=== PATIENT | female | born 1935 | race Caucasian/White ===

== ENCOUNTER 2017-06-05 08:00 | Inpatient (IN) | payer OTHER ==
[2017-06-05] VITALS (7 sets, daily range): BP systolic 144–163; BP diastolic 74–86; PULSE 93–105; RESP 18–19; TEMP 98.1; Ht 165.1 cm; Wt 50.0 kg
[~2017-06-05] VITALS: Ht 165.1 cm; Wt 50.0 kg
[2017-06-05] MEDS ORDERED: SOD CHLORIDE 0.9% 1,000 ML IV STA (08:06)
[2017-06-05] MEDS ORDERED: IPRATROPIUM (NEB) 0.5 MG/2.5 ML AMP INH STA ×2 (08:06→10:54)
[2017-06-05] MEDS ORDERED: ALBUTEROL 0.5% (NEB) 2.5 MG/0.5 ML AMP INH STA ×2 (08:06→10:54)
[2017-06-05] MEDS ORDERED: METHYLPREDNISOLONE 125 MG INJ IV STA (08:06)
--- NOTE | 2017-06-05 08:17 | ERA ---
ER Documentation Chief Complaint Date/Time DATE: 06/05/17 TIME: 08:14 Chief Complaint PT BIB AMBULANCE C/O SOSB, WHEEZING, NO CP HPI This is a 81-year-old female with a known history of dementia that was brought into the emergency department from her assisted living facility with severe difficulty breathing. EMS indicated the patient had wheezing bilaterally and immediately was given a nebulizer treatment with improvement of her dyspnea. She was hypoxic at 90% on room air. EMS indicated that after the nebulizer treatment of albuterol her pulse ox improved to 95%. The patient's past medical history is unknown. She is a poor historian given her history of dementia. The difficulty breathing according to nursing staff at the assisted living facility occurred several hours prior to arrival and progressively worsened. She has also had a productive cough. There has been no complaints of chest pain or pressure that radiates to the neck or back or jaw. She has remained afebrile. There is no documentation of hemoptysis hematemesis or melanotic stools. Past medical history of the patient is unknown ROS All systems reviewed and are negative except as per history of present illness. Medications Home Meds Active Scripts Albuterol Sulfate* (Proair HFA*) 8.5 Gm Hfa.aer.ad, 2 PUFF INH Q6H Y for WHEEZING AND SOB, #1 INHALER Prov:HANNAH FINNEY 06/05/17 Cephalexin* (Keflex*) 500 Mg Capsule, 500 MG PO QID for 10 Days, CAP Prov:HANNAH FINNEY 06/05/17 Reported Medications Dextromethorphan Hbr (Tussin) 15 Mg/5 Ml Liquid, 30 MG PO Q6H Y for COUGH, ML 06/05/17 Albuterol Sulfate* (Proair HFA*) 8.5 Gm Hfa.aer.ad, 2 PUFF INH Q4H Y for WHEEZING AND SOB, #1 INHALER 06/05/17 Lorazepam* (Lorazepam*) 0.5 Mg Tablet, 0.5 MG PO HS Y for ANXIETY, TAB 06/05/17 Clonidine Hcl* (Clonidine Hcl*) 0.1 Mg Tab, 0.1 MG PO BID Y for ELEVATED BLOOD PRESSURE, TAB 06/05/17 Memantine HCl/Donepezil HCl (Namzaric 21 mg-10 mg Capsule) 1 Each Cap.spr.24, 1 EACH PO DAILY 06/05/17 Donepezil* (Donepezil*) 10 Mg Tablet, 10 MG PO DAILY, #30 TAB 06/05/17 Quetiapine Fumarate* (Quetiapine Fumarate*) 25 Mg Tablet, 12.5 MG PO BID, TAB 06/05/17 Calcium Phosphate Dibas/Vit D3 (RISACAL-D TABLET) 1 Each Tablet, 1 EACH PO DAILY , TAB 06/05/17 Losartan Potassium* (Losartan Potassium*) 100 Mg Tablet, 100 MG PO DAILY, TAB 06/05/17 Amlodipine Besylate* (Norvasc*) 5 Mg Tablet, 5 MG PO DAILY, TAB 06/05/17 Allergies Allergies: Coded Allergies: No Known Allergy (Unverified , 06/05/17) PMhx/Soc History of Surgery: No Anesthesia Reaction: No Hx Neurological Disorder: Yes (Dimentia) Hx Respiratory Disorders: Yes (on Pro-air) Hx Cardiac Disorders: No Hx Psychiatric Problems: Yes (Schizo-effective disorder.) Hx Miscellaneous Medical Probl: Yes (HTN, GERD) Hx Alcohol Use: No Hx Substance Use: No Hx Tobacco Use: No Smoking Status: Unknown if ever smoked Physical Exam Vitals Vital Signs Date Time Temp Pulse Resp B/P Pulse Ox O2 Delivery O2 Flow Rate FiO2 06/05/17 09:32 97.9 102 22 162/89 99 Room Air 06/05/17 08:17 100 22 98 21 06/05/17 08:06 97.5 95 19 145/91 97 Physical Exam Constitutional:Well-developed. Well-nourished. Patient in severe respiratory distress HEENT:Normocephalic. Atraumatic.Pupils were equal round reactive to light. Moist mucous membranes.No tonsillar exudates. Neck: No nuchal rigidity. No lymphadenopathy. No posterior cervical spine tenderness or step-offs. Respiratory: Not using accessory muscles of respiration. Wheezing on end auscultation bilaterally. No rhonchi no rales Cardiovascular: Regular rate regular rhythm.No murmurs. No rubs were appreciated.S1, S2 normal. Distal pulses are palpable 2+ bilaterally. GI: Abdomen was soft. Nontender. Non Distended. No pulsatile abdominal masses or bruits. No rebound. No guarding. Bowel sounds were present and normal. Muscle skeletal: Full range of motion of both the upper and lower extremities bilaterally.Normal muscle tone.No assymetrical calf tenderness or swelling. Skin: No petechia, no purpura. No lesions on the palms or the soles of the feet. No maculopapular rash. NEURO: Patient was alert, awake, orientated to person place but not to time. Gait not observed this patient was in severe respiratory distress. Patient would follow verbal command. No facial droop. No flattened nasolabial fold. Result Diagram: 06/05/1730 06/05/1730 Results 24 hrs Laboratory Tests Test 06/05/17 08:30 06/05/17 09:30 White Blood Count 6.010^3/ul Red Blood Count 4.1810^6/ul Hemoglobin 13.3g/dl Hematocrit 41.2% Mean Corpuscular Volume 98.6fl Mean Corpuscular Hemoglobin 31.8pg Mean Corpuscular Hemoglobin Concent 32.3g/dl Red Cell Distribution Width 14.7% Platelet Count 55324^3/UL Mean Platelet Volume 9.6fl Neutrophils % 49.6% Lymphocytes % 36.2% Monocytes % 10.1% Eosinophils % 3.3% Basophils % 0.5% Nucleated Red Blood Cells % 0.0/100WBC Neutrophils # 3.010^3/ul Lymphocytes # 2.210^3/ul Monocytes # 0.610^3/ul Eosinophils # 0.210^3/ul Basophils # 0.010^3/ul Nucleated Red Blood Cells # 0.010^3/ul Sodium Level 146mmol/L Potassium Level 4.3mmol/L Chloride Level 109mmol/L Carbon Dioxide Level 31mmol/L Anion Gap 10 Blood Urea Nitrogen 26mg/dl Creatinine 0.82mg/dl Glucose Level 92mg/dl Calcium Level 9.1mg/dl Total Bilirubin 0.3mg/dl Direct Bilirubin 0.00mg/dl Indirect Bilirubin 0.3mg/dl Aspartate Amino Transf (AST/SGOT) 24IU/L Alanine Aminotransferase (ALT/SGPT) 24IU/L Alkaline Phosphatase 59IU/L Creatine Kinase 28IU/L Creatine Kinase Index 2.9 Creatinine Kinase MB (Mass) 0.82ng/ml Troponin I < 0.012ng/ml B-Type Natriuretic Peptide 159PG/ML Total Protein 7.6g/dl Albumin 4.2g/dl Globulin 3.40g/dl Albumin/Globulin Ratio 1.23 Urine Color YELLOW Urine Clarity CLEAR Urine pH 5.0 Urine Specific [place] 1.017 Urine Ketones NEGATIVEmg/dL Urine Nitrite NEGATIVEmg/dL Urine Bilirubin NEGATIVEmg/dL Urine Urobilinogen NEGATIVEmg/dL Urine Leukocyte Esterase TRACELeu/ul Urine Microscopic RBC 2/HPF Urine Microscopic WBC 11/HPF Urine Bacteria FEW/HPF Urine Hemoglobin NEGATIVEmg/dL Urine Glucose NEGATIVEmg/dL Urine Total Protein NEGATIVEmg/dl Current Medications Medications (Trade) Dose Ordered Sig/Kristen Route PRN Reason Start Time Stop Time Status Last Admin Dose Admin Sodium Chloride (NS) 1,000 ml @ 1,000 mls/hr Q1H STAT IV 06/05/17 08:06 06/05/17 09:05 DC 06/05/17 08:34 Albuterol (Proventil 0.5% (Neb)) 10 mg ONCE STAT INH 06/05/17 08:06 06/05/17 08:09 DC 06/05/17 08:15 Ipratropium [place] (Atrovent 0.02% (Neb)) 1 mg ONCE STAT INH 06/05/17 08:06 06/05/17 08:09 DC 06/05/17 08:15 Methylprednisolone Sodium Succinate 125 mg 125 mg ONCE STAT IV 06/05/17 08:06 06/05/17 08:09 DC 06/05/17 08:34 Ceftriaxone Sodium (Rocephin) 50 ml @ 100 mls/hr ONCE ONCE IVPB 06/05/17 10:00 06/05/17 10:29 DC 06/05/17 09:54 Albuterol (Proventil 0.5% (Neb)) 10 mg ONCE STAT INH 06/05/17 10:54 06/05/17 10:55 Ipratropium [place] (Atrovent 0.02% (Neb)) 1 mg ONCE STAT INH 06/05/17 10:54 06/05/17 10:55 Procedures/MDM The patient presented to the emergency department with dyspnea. My differential diagnosis included but was not limited to upper airway obstruction, CHF, pulmonary embolism, cardiac ischemia, pneumonia, pneumothorax, anemia, drug overdose, pulmonary edema, COPD or asthma. The patient was immediately placed on a alarm security or surveillance monitor continuous pulse oximetry and IV access was established by nursing staff. The patient was started on continuous nebulizer treatment of albuterol Atrovent and given 125 mg of Solu-Medrol. 12 Lead EKG tracing ordered and reviewed by myself showed: Sinus tachycardia 102 bpm and no arrhythmia. PA interval normal. QRS duration normal. PVCs No ST segment elevation No ST segment depression. No changes consistent with acute ischemia. One view chest radiograph was ordered and reviewed by myself and indicated the following: Probable prominent epicardial fat pad in the medial right lung base. Calcified aorta consistent with atherosclerotic disease. The patient had no electrolyte abnormalities. There is no leukocytosis. The patient was nontoxic in appearance. After receiving the nebulizer treatments the patient's symptoms had significantly improved. I did feel her symptoms could be a result of acute bronchitis as the patient had no evidence of pneumonia at this time. She had no risk factors for pulmonary embolism. Therefore I felt the patient be safely discharged back to her assisted living facility with low-dose steroids and nebulizer treatments. The patient's urinalysis indicated a mild urinary tract infection. Urine culture was obtained. She received 1 g of ceftriaxone in the emergency department. She will be discharged back to her assisted living facility with a prescription of Keflex to take for the next 10 days Patient had mild hyponatremia that was likely secondary to clinical dehydration and was treated with a liter bolus of normal saline The patient was to be discharged home however when EMS arrived for ambulance transfer the patient had worsening of her respiratory distress. Now was using accessory muscles of respiration and had decreased breath sounds bilaterally. She was immediately placed on a BiPAP and ABG has been performed. She received nebulizer treatments of albuterol and Atrovent. Therefore at this time I did feel the patient required admission due to the continuation of the decompensation of her respiratory status. Once on the noninvasive mechanical ventilation her symptoms significantly improved. She will be admitted under the care of Dr. to the telemetry service in serious condition with an anticipated stay of greater than 2 midnights Critical Care: Time: 45 minutes Treatments/Evaluations: Close monitoring and treatment of unstable vital signs, cardiorespiratory, and neurologic status, while maintaining tight balance of fluid, respiratory, and cardiac interventions. Time does not include performing any of the above billable procedures. Departure Diagnosis: Primary Impression: Bronchitis Additional Impressions: Acute hypernatremia Urinary tract infection Qualified Code: N30.00 - Acute cystitis without hematuria Respiratory distress Condition: Serious HANNAH FINNEY Jun 05, 2017 08:17
--- NOTE | 2017-06-05 08:33 | RADRPT ---
PROCEDURE: XR Chest. CLINICAL INDICATION: Chest pain, asthma TECHNIQUE: Single frontal view of the chest was obtained. COMPARISON: None FINDINGS: The heart is within normal limits. The thoracic aorta is calcified. There is no focal infiltrate. There is increased density in the right lung base medially, suspicious for a prominent epicardial fat pad. There is no pleural effusion or pneumothorax. RPTAT: AA IMPRESSION: Probable prominent epicardial fat pad in the medial right lung base. Calcified aorta consistent with atherosclerotic disease. .Cory Melendez MD, MD Date Time Electronically viewed and signed by .Cory Melendez MD, on 06/05/2017 08:32 .S/
[2017-06-05 08:49] LABS: BASOPHILS % 0.5 % (0.0-2.0); EOSINOPHILS # 0.2 10^3/ul (0.0-0.5); EOSINOPHILS % 3.3 % (0.0-7.0); HEMATOCRIT 41.2 % (37.0-47.0); HEMOGLOBIN 13.3 g/dl (12.0-16.0); LYMPHOCYTES # 2.2 10^3/ul (0.8-2.9); LYMPHOCYTES % 36.2 % (15.0-51.0); MEAN CORPUSCULAR HEMOGLOBIN 31.8 pg (29.0-33.0); MEAN CORPUSCULAR HGB CONC 32.3 g/dl (32.0-37.0); MEAN CORPUSCULAR VOLUME 98.6 fl (82.0-101.0); MEAN PLATELET VOLUME 9.6 fl (7.4-10.4); MONOCYTE # 0.6 10^3/ul (0.3-0.9); MONOCYTES % 10.1 % (0.0-11.0); NEUTROPHILS % 49.6 % (39.0-77.0); PLATELET COUNT 306 10^3/UL (140-415); RED BLOOD COUNT 4.18 10^6/ul (4.20-5.40); RED CELL DISTRIBUTION WIDTH 14.7 % (11.5-14.5)
[2017-06-05] MEDS ORDERED: AMLO5TAB4 PO (09:07)
[2017-06-05] MEDS ORDERED: LOSA100T7 PO (09:08)
[2017-06-05] MEDS ORDERED: [UNRECOGNIZED DRUG - CODE] PO (09:08)
[2017-06-05] MEDS ORDERED: QUET25TA33 PO (09:08)
[2017-06-05] MEDS ORDERED: DONE10TA7 PO (09:09)
[2017-06-05] MEDS ORDERED: CLON-379 PO (09:10)
[2017-06-05] MEDS ORDERED: MEMA1CAP5 PO (09:10)
[2017-06-05 09:11] LABS: ALANINE AMINOTRANSFERASE 24 IU/L (13-69); ALBUMIN 4.2 g/dl (3.3-4.9); ALBUMIN/GLOBULIN RATIO 1.23; ALKALINE PHOSPHATASE 59 IU/L (42-121); ANION GAP 10 (8-16); ASPARTATE AMINO TRANSFERASE 24 IU/L (15-46); BILIRUBIN,INDIRECT 0.3 mg/dl (0-1.1); BILIRUBIN,TOTAL 0.3 mg/dl (0.2-1.3); BLOOD UREA NITROGEN 26 mg/dl (7-20); CALCIUM 9.1 mg/dl (8.4-10.2); CARBON DIOXIDE 31 mmol/L (21-31); CHLORIDE 109 mmol/L (97-110); CREATINE KINASE 28 IU/L (23-200); CREATININE 0.82 mg/dl (0.44-1.00); GLUCOSE 92 mg/dl (70-220); POTASSIUM 4.3 mmol/L (3.5-5.1); SODIUM 146 mmol/L (135-144); TOTAL PROTEIN 7.6 g/dl (6.1-8.1)
[2017-06-05] MEDS ORDERED: LORA0.5T PO (09:11)
[2017-06-05] MEDS ORDERED: ALBU8.5H3 INH ×2 (09:13→09:52)
[2017-06-05] MEDS ORDERED: DEXT15LI31 PO (09:14)
[2017-06-05 09:23] LABS: B-TYPE NATRIURETIC PEPTIDE 159 PG/ML (0-450); CK-MB 0.82 ng/ml (0.0-2.4)
[2017-06-05 09:25] LABS: TROPONIN-I < 0.012 ng/ml (0.00-0.12)
[2017-06-05 09:46] LABS: ADD UMIC YES; UR ASCORBIC ACID 20 mg/dL (NEGATIVE); UR BACTERIA FEW /HPF (NONE SEEN); UR BILIRUBIN (Dip) NEGATIVE (NEGATIVE); UR BLOOD (Dip) NEGATIVE (NEGATIVE); UR CLARITY CLEAR (CLEAR); UR COLOR YELLOW (YELLOW); UR GLUCOSE (Dip) NEGATIVE (NEGATIVE); UR KETONES (Dip) NEGATIVE (NEGATIVE); UR LEUKOCYTE ESTERASE (Dip) TRACE Leu/ul (NEGATIVE); UR NITRITE (Dip) NEGATIVE (NEGATIVE); UR RBC 2 /HPF (0-5); UR SPECIFIC GRAVITY (Dip) 1.017 (1.003-1.030); UR TOTAL PROTEIN (Dip) NEGATIVE (NEGATIVE); UR UROBILINOGEN (Dip) NEGATIVE (NEGATIVE)
[2017-06-05] MEDS ORDERED: CEPH-443 PO (09:51)
[2017-06-05] MEDS ORDERED: CEFTRIAXONE 1 GM/50 ML (PMX) 50 ML IVPB ONE (10:00)
[2017-06-05 11:22] LABS: Allen Test ACCEPTAB; Arterial Base Excess 0.8 mmol/L (-3.0-3); Arterial COHb 0.3 % (0.0-3.0); Arterial Fraction of Oxyhgb 98.6 % (93.0-99.0); Arterial HCO3 26.5 mmol/L (22.0-26.0); Arterial MetHb 0.3 % (0.0-1.5); Arterial Total Hemglobin 13.2 g/dl (12.0-18.0); Blood Gas IEPAP 15/5; MODE MASK - BIPAP
[2017-06-05] MEDS ORDERED: ONDANSETRON 4 MG INJ IV PRN ×2 (12:00→14:00)
[2017-06-05] MEDS ORDERED: ACETAMINOPHEN 325 MG TAB PO PRN ×2 (12:00→14:00)
[2017-06-05] MEDS ORDERED: SOD CHLORIDE 0.9% 1,000 ML IV SCH (13:51)
[2017-06-05] MEDS ORDERED: ALBUTEROL/IPRATROPIUM (NEB) 3 ML AMP HHN PRN (14:00)
[2017-06-05] MEDS ORDERED: morphine 2 MG INJ IV PRN (14:00)
[2017-06-05] MEDS ORDERED: NITROGLYCERIN (SL) 0.4 MG TAB SL PRN (14:00)
[2017-06-05] MEDS ORDERED: hydrALAzine 20 MG INJ IV PRN (14:00)
[2017-06-05] MEDS ORDERED: LORAZEPAM 0.5 MG TAB PO PRN (14:00)
[2017-06-05] MEDS ORDERED: MAGNESIUM HYDROXIDE 30ML CUP PO PRN (14:00)
[2017-06-05] MEDS ORDERED: NACL 0.9% 3 ML SYG IV SCH (14:00)
[2017-06-05] MEDS ORDERED: DOCUSATE SODIUM 100 MG CAP PO PRN (14:00)
[2017-06-05] MEDS ORDERED: BISACODYL 10 MG SUPP PR PRN (14:00)
[2017-06-05] MEDS ORDERED: SOD CHLORIDE 0.9% 100 ML ONE (15:28)
[2017-06-05] MEDS ORDERED: IODIXANOL LOCM 100 ML BTL ONE (15:28)
[2017-06-05 15:29] LABS: CREATINE KINASE 62 IU/L (23-200)
[2017-06-05 15:42] LABS: CK-MB 1.37 ng/ml (0.0-2.4)
[2017-06-05 16:02] LABS: TROPONIN-I < 0.012 ng/ml (0.00-0.12)
--- NOTE | 2017-06-05 16:13 | RADRPT ---
PROCEDURE: CTA Chest CLINICAL INDICATION: Dyspnea TECHNIQUE: CTA of the chest was performed following the uncomplicated IV administration of 100 cc Visipaque 320. Coronal and sagittal images were reconstructed from the axial data set. 3-D volumet sharri rendered post processing was performed as well. One or more of the following dose reduction lucho hniques were used: automated exposure control, adjustment of the mA and/or kV according to patient s ize, use of iterative reconstruction technique. CTDI = 5.8 mGy. DLP = 223.02 mGy-cm. COMPARISON: No prior studies are available for comparison. FINDINGS: No filling defect is present to suggest pulmonary embolism. There is no evidence for pulmonary melissa rial hypertension. There is moderate to severe pulmonary emphysema. No acute infiltrate, pleural effusion, pulmonary ed harjit or pneumothorax is identified. The central tracheobronchial tree is clear. No pulmonary nodule o r mass is seen. The heart is mildly enlarged, without pericardial effusion. Coronary arterial and aortic atheroscler otic calcifications are present. There is no thoracic aortic aneurysm or dissection. No mediastinal, hilar, axillary or supraclavicular lymphadenopathy is identified. The Right adrenal gland demonstrates a 3.7 cm benign adenoma. Visualized portions of the upper abdomen a re otherwise unremarkable. The osseous structures are remarkable for degenerative spondylosis of th e spine. No osteolytic or osteoblastic lesion is seen. IMPRESSION: 1. No pulmonary embolism is identified. 2. There is moderate to severe pulmonary emphysema. 3. Mild cardiomegaly is noted. Coronary arterial and aortic atherosclerotic calcifications are pres ent. 4. No mass, lymphadenopathy, or focal acute infiltrate is identified. RPTAT: AAOO .Jos Christine MD, MD Date Time Electronically viewed and signed by .Jos Christine MD, MD on 06/05/2017 16:13 .R/
[2017-06-05] MEDS: METHYLPREDNISOLONE 125 MG INJ IV SCH ×2 (16:21→20:59)
[2017-06-05] MEDS: DONEPEZIL 10 MG TAB PO SCH (16:22)
[2017-06-05] MEDS: AMLODIPINE 5 MG TAB PO SCH (16:24)
[2017-06-05] MEDS: LOSARTAN 50 MG TAB PO SCH (16:24)
--- NOTE | 2017-06-05 16:59 | HP ---
Date/Time of Note Date/Time of Note DATE: 06/05/17 TIME: 16:52 Assessment/Plan VTE Prophylaxis VTE Prophylaxis Intervention: LMWH Assessment/Plan Assessment/Plan 81-year-old female with: 1. Acute respiratory distress, COPD exacerbation, CAT scan consistent with moderate to severe emphysema with likely underlying bronchitis Continue nebulizer treatments, steroids, Advair, Spiriva, pulmonary toilet Continue ceftriaxone will add also azithromycin Supplemental oxygen with goal O2 sat above 92% 2. Hypertension: Continue current medications, as needed hydralazine IV added. 3. Dementia: Continue home medications, patient currently stable and calm 4. GERD: Continue current medications 5. Schizophrenia per record, continue current medications Prophylaxis: Lovenox for DVT prophylaxis, Protonix for GI prophylaxis Disposition: Continue current treatment, supplemental oxygen, hopefully discharge planning in the next 24-48 hours Patient is DNR HPI/ROS Admit Date/Time Admit Date/Time Jun 05, 2017 at 11:36 Hx of Present Illness Chief complaint: Shortness of breath History of presenting illness: This is a 81-year-old female with very limited history without have much from assisted living, but reported dementia, hypertension and no previous chronic lung disease per report who was brought to the emergency department with episode of severe shortness of breath and productive cough, apparently in the ER she was fairly stable with no acute findings and she was being discharged back to her next to her assisted living with diagnosis of Bronchitis, while awaiting for ambulance to take her back, patient was noted to have recurring severe respiratory distress requiring BiPAP , she was given a dose of Solu-Medrol along with nebulizer treatments and admitted to telemetry. She had a CT angiogram of the chest, no pulmonary embolus however the patient has moderate to severe emphysema noted. Nebulizer treatments, steroids, Advair , Spiriva has been ordered. She is on supplemental oxygen, ABG was fairly stable on BiPAP. She will be monitored overnight and treated for COPD exacerbation. She may still have underlying bronchitis therefore her Rocephin is being continued. Patient herself has dementia, she is answering simple question but she is not able to reason through her symptoms and diagnosis. Per her son, she is DNR. She denies chest pain, she reports some shortness of breath still, no fevers, no nausea, no vomiting. ROS Constitutional: no complaints Eyes: no complaints ENT: no complaints Respiratory: other, shortness of breath Cardiovascular: no complaints Gastrointestinal: no complaints Genitourinary: no complaints Musculoskeletal: no complaints Neurologic: confusion Lymphatic: no complaints PMH/Family/Social Past Medical History Dementia Hypertension Gastroesophageal reflux disease Reported schizophrenia Emphysema Past Surgical History Unknown, patient unable to give any history Family History Significant Family History: no pertinent family hx Social History Alcohol Use: none Smoking Status: Former smoker Drug Use: none Exam/Review of Systems Vital Signs Vitals Vital Signs Date Time Temp Pulse Resp B/P Pulse Ox O2 Delivery O2 Flow Rate FiO2 06/05/17 16:38 98.3 105 18 144/86 97 06/05/17 12:27 BIPAP 06/05/17 11:25 30 Exam Constitutional: alert, oriented (x2), other (Elderly), well developed Respiratory: diminished breath sounds (Patient bronchospastic but improved), other (Improved air movement), wheezing (Some expiratory wheezes) Cardiovascular: nl pulses, regular rate and rhythm Gastrointestinal: soft Musculoskeletal: nl extremities to inspection Extremities: normal pulses, other (No edema, clubbing or cyanosis) Neurological: TRANSMISSION ENGINEER II-XII intact, confused, lethargic, nl speech Labs Result Diagram: 06/05/17 0830 06/05/17 0830 Medications Medications Current Medications Amlodipine Besylate (Norvasc) 5 mg DAILY PO Last administered on 06/05/17 16: 24; Admin Dose 5 MG; Start 06/05/17 at 14:30 Clonidine (Catapres) 0.1 mg BID PRN PO ELEVATED BLOOD PRESSURE; Start 06/05/17 at 14:00 Donepezil HCl (Aricept) 10 mg DAILY PO Last administered on 06/05/17 16:22; Admin Dose 10 MG; Start 06/05/17 at 14:30 Lorazepam (Ativan) 0.5 mg HS PRN PO ANXIETY; Start 06/05/17 at 14:00 Losartan Potassium (Cozaar) 100 mg DAILY PO Last administered on 06/05/17 16: 24; Admin Dose 100 MG; Start 06/05/17 at 14:30 Quetiapine Fumarate (Seroquel) 12.5 mg BID PO ; Start 06/05/17 at 21:00 Hydralazine HCl 10 mg 10 mg Q8H PRN IV ELEVATED BLOOD PRESSURE; Start 06/05/17 at 14:00 Ceftriaxone Sodium 50 ml @ 100 mls/hr Q24H IVPB ; Start 06/06/17 at 10:00 Sodium Chloride (NS) 1,000 ml @ 75 mls/hr [id number] IV Last administered on 06/05 16:08; Admin Dose 75 MLS/HR; Start 06/05/17 at 13:51; Stop 06/06/17 at 03: 10 Ondansetron HCl (Zofran Inj) 4 mg Q6H PRN IV NAUSEA AND/OR VOMITING; Start at 14:00 Methylprednisolone Sodium Succinate (Solu-Medrol) 60 mg Q8 IV Last administered on 06/05/17 16:21; Admin Dose 60 MG; Start 06/05/17 at 14:30 Nitroglycerin (Nitroglycerin (Sl Tab) 0.4 Mg) 1 tab Q5M PRN SL CHEST PAIN; Start 06/05/17 at 14:00 Acetaminophen (Tylenol Tab) 650 mg Q6H PRN PO PAIN LEVEL 1-3 OR FEVER; Start at 14:00 Acetaminophen/ Hydrocodone Bitart ([place] (5/325)) 1 tab Q6H PRN PO PAIN LEVEL 4 -6; Start 06/05/17 at 14:00 Morphine Sulfate (morphine) 2 mg Q4H PRN IV PAIN LEVEL 7-10; Start 06/05/17 at 14:00 Docusate Sodium (Colace) 100 mg Q12H PRN PO CONSTIPATION; Start 06/05/17 at 14: 00 Magnesium Hydroxide (Milk Of Mag) 30 ml DAILY PRN PO CONSTIPATION; Start at 14:00 Bisacodyl (Dulcolax Supp) 10 mg DAILY PRN DE CONSTIPATION; Start 06/05/17 at 14 :00 Pantoprazole (Protonix Tab) 40 mg DAILY@06 PO ; Start 06/06/17 at 06:00 Enoxaparin Sodium (Lovenox) 40 mg DAILY SC ; Start 06/06/17 at 09:00 Memantine (Namenda) 10 mg DAILY PO ; Start 06/06/17 at 09:00 Influenza Virus Vaccine (Fluzone) 0.5 ml ONCE ONCE IM* ; Start 06/05/17 at 18:00 ; Stop 06/05/17 at 18:01 Salmeterol Xinafoate/ Fluticasone (Advair 250/50 Diskus) 1 inh BID INH ; Start 06/05/17 at 21:00 Tiotropium [place] (Spiriva) 1 inh DAILY INH ; Start 06/05/17 at 17:00 Procedures Procedures PROCEDURE: CTA Chest CLINICAL INDICATION: Dyspnea TECHNIQUE: CTA of the chest was performed following the uncomplicated IV administration of 100 cc Visipaque 320. Coronal and sagittal images were reconstructed from the axial data set. 3-D volumetric rendered post processing was performed as well. One or more of the following dose reduction techniques were used: automated exposure control, adjustment of the mA and/or kV according to patient size, use of iterative reconstruction technique. CTDI = 5.8 mGy. DLP = 223.02 mGy-cm. COMPARISON: No prior studies are available for comparison. FINDINGS: No filling defect is present to suggest pulmonary embolism. There is no evidence for pulmonary arterial hypertension. There is moderate to severe pulmonary emphysema. No acute infiltrate, pleural effusion, pulmonary edema or pneumothorax is identified. The central tracheobronchial tree is clear. No pulmonary nodule or mass is seen. The heart is mildly enlarged, without pericardial effusion. Coronary arterial and aortic atherosclerotic calcifications are present. There is no thoracic aortic aneurysm or dissection. No mediastinal, hilar, axillary or supraclavicular lymphadenopathy is identified. The Right adrenal gland demonstrates a 3.7 cm benign adenoma. Visualized portions of the upper abdomen are otherwise unremarkable. The osseous structures are remarkable for degenerative spondylosis of the spine. No osteolytic or osteoblastic lesion is seen. IMPRESSION: 1. No pulmonary embolism is identified. 2. There is moderate to severe pulmonary emphysema. 3. Mild cardiomegaly is noted. Coronary arterial and aortic atherosclerotic calcifications are present. 4. No mass, lymphadenopathy, or focal acute infiltrate is identified. RPTAT: AAOO .Jos Christine MD, Date Time Electronically viewed and signed by .Jos Christine MD, on 06/05/2017 16: 13 AKASH PAN Jun 05, 2017 16:59
[2017-06-05] MEDS: ALBUTEROL/IPRATROPIUM (NEB) 3 ML AMP HHN SCH ×2 (17:42→23:09)
[2017-06-05] MEDS ORDERED: INFLUENZA VIRUS VACCINE 0.5 ML SYG IM* ONE (18:00)
[2017-06-05] MEDS: TIOTROPIUM 18 MCG CAPSULE INHA DEV INH SCH (18:32)
[2017-06-05] MEDS: QUETIAPINE 25 MG TAB PO SCH (20:59)
[2017-06-05] MEDS: SALMETEROL/FLUTICASONE 250/50 INHA INH SCH (20:59)
[2017-06-05 21:11] LABS: CK-MB 3.15 ng/ml (0.0-2.4)
[2017-06-05 21:21] LABS: TROPONIN-I < 0.012 ng/ml (0.00-0.12)
[2017-06-05 21:22] LABS: CREATINE KINASE 128 IU/L (23-200)
[2017-06-06] VITALS (12 sets, daily range): BP systolic 143–158; BP diastolic 75–89; PULSE 74–104; RESP 16–19
[2017-06-06] MEDS: PANTOPRAZOLE (EC) 40 MG TAB PO SCH (05:33)
[2017-06-06] MEDS: METHYLPREDNISOLONE 125 MG INJ IV SCH ×3 (05:33→21:04)
[2017-06-06] MEDS: HYDROCODONE/APAP (5/325) TAB PO PRN ×2 (05:38→21:44)
[2017-06-06 07:32] LABS: ABNORMAL IP MESSAGE 1; LYMPHOCYTES # 0.6 10^3/ul (0.8-2.9); MEAN CORPUSCULAR HEMOGLOBIN 31.3 pg (29.0-33.0); MEAN CORPUSCULAR HGB CONC 32.4 g/dl (32.0-37.0); MEAN CORPUSCULAR VOLUME 96.4 fl (82.0-101.0); MEAN PLATELET VOLUME 9.6 fl (7.4-10.4); MONOCYTE # 0.1 10^3/ul (0.3-0.9); MONOCYTES % 2.7 % (0.0-11.0); NEUTROPHIL # 4.5 10^3/ul (1.6-7.5); NEUTROPHILS % 86.1 % (39.0-77.0); PLATELET COUNT 314 10^3/UL (140-415); RED BLOOD COUNT 3.84 10^6/ul (4.20-5.40); RED CELL DISTRIBUTION WIDTH 14.8 % (11.5-14.5); WHITE BLOOD COUNT 5.2 10^3/ul (4.8-10.8)
[2017-06-06 07:36] LABS: POSITIVE DIFF @See below
[2017-06-06 08:13] LABS: ALBUMIN 3.4 g/dl (3.3-4.9); ALBUMIN/GLOBULIN RATIO 0.97; BILIRUBIN,INDIRECT 0.2 mg/dl (0-1.1); BILIRUBIN,TOTAL 0.2 mg/dl (0.2-1.3); CALCIUM 8.9 mg/dl (8.4-10.2); CHOL/HDL RATIO 2.3 RATIO; CREATININE 0.63 mg/dl (0.44-1.00); MAGNESIUM 1.9 mg/dl (1.7-2.5); POTASSIUM 3.8 mmol/L (3.5-5.1); TOTAL PROTEIN 6.9 g/dl (6.1-8.1)
[2017-06-06] MEDS: TIOTROPIUM 18 MCG CAPSULE INHA DEV INH SCH (09:17)
[2017-06-06] MEDS: MEMANTINE 10 MG TAB PO SCH (09:17)
[2017-06-06] MEDS: QUETIAPINE 25 MG TAB PO SCH ×2 (09:17→21:02)
[2017-06-06] MEDS: AMLODIPINE 5 MG TAB PO SCH (09:17)
[2017-06-06] MEDS: SALMETEROL/FLUTICASONE 250/50 INHA INH SCH ×2 (09:17→21:02)
[2017-06-06] MEDS: LOSARTAN 50 MG TAB PO SCH (09:18)
[2017-06-06] MEDS: DONEPEZIL 10 MG TAB PO SCH (09:18)
[2017-06-06] MEDS: CEFTRIAXONE 1 GM/50 ML (PMX) 50 ML IVPB SCH (09:19)
[2017-06-06] MEDS: ENOXAPARIN 40 MG/0.4 ML SYG SC SCH (09:29)
[2017-06-06] MEDS: ALBUTEROL/IPRATROPIUM (NEB) 3 ML AMP HHN SCH ×3 (09:42→23:14)
--- NOTE | 2017-06-06 12:37 | PN ---
Date/Time of Note Date/Time of Note DATE: 06/06/17 TIME: 12:21 Assessment/Plan VTE Prophylaxis VTE Prophylaxis Intervention: LMWH Lines/Catheters IV Catheter Type (from [facility]): Peripheral IV Urinary Cath still in place: No Assessment/Plan Assessment/Plan 81-year-old female with: 1. Acute respiratory distress, COPD exacerbation, CAT scan consistent with moderate to severe emphysema with likely underlying bronchitis Continue nebulizer treatments, steroids, Advair, Spiriva, pulmonary toilet Continue ceftriaxone. Supplemental oxygen with goal O2 sat above 92% 2. Hypertension: Continue current medications, as needed hydralazine IV added. 3. Dementia: Continue home medications, patient currently stable and calm 4. GERD: Continue current medications 5. Schizophrenia per record, continue current medications Prophylaxis: Lovenox for DVT prophylaxis, Protonix for GI prophylaxis Disposition: Continue current treatment, supplemental oxygen, hopefully discharge planning in the next 24 hours back to assisted living Patient is DNR Subjective 24 Hr Interval Summary Free Text/Dictation Patient is doing better today, she does have dementia and does not seem to process or remember why she is in the hospital. Her COPD exacerbation is improving, she will be switched to prednisone today with a discharge planning by tomorrow if remains stable. She can return to her facility at that time. DNR Exam/Review of Systems Vital Signs Vitals Vital Signs Date Time Temp Pulse Resp B/P Pulse Ox O2 Delivery O2 Flow Rate FiO2 06/06/17 11:23 97.8 86 16 143/77 98 06/06/17 09:45 2.0 06/06/17 09:44 Nasal Cannula 06/05/17 11:25 30 Intake and Output 06/05/17 06/05/17 06/06/17 15:00 23:00 07:00 Intake Total 1050 ml 1060 ml Balance 1050 ml 1060 ml Exam Constitutional: alert, frail, oriented (x2) Respiratory: clear to auscultation, normal air movement, other (no wheezes) Cardiovascular: nl pulses, regular rate and rhythm Gastrointestinal: non-tender, soft Musculoskeletal: nl extremities to inspection, other (no edema, clubbing or ) Extremities: normal pulses, other 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, confused, nl speech, other (generalized weakness ) Results Result Diagram: 06/06/17 0630 06/06/17 0630 Results 24 hrs Laboratory Tests Test 06/05/17 14:50 06/05/17 20:22 06/06/17 06:30 Creatine Kinase 62 128 Creatine Kinase Index 2.2 2.5 Creatinine Kinase MB (Mass) 1.37 3.15 H Troponin I < 0.012 < 0.012 White Blood Count 5.2 Red Blood Count 3.84 L Hemoglobin 12.0 Hematocrit 37.0 Mean Corpuscular Volume 96.4 Mean Corpuscular Hemoglobin 31.3 Mean Corpuscular Hemoglobin Concent 32.4 Red Cell Distribution Width 14.8 H Platelet Count 314 Mean Platelet Volume 9.6 Neutrophils % 86.1 H Lymphocytes % 11.0 L Monocytes % 2.7 Eosinophils % 0.0 Basophils % 0.0 Nucleated Red Blood Cells % 0.0 Neutrophils # 4.5 Lymphocytes # 0.6 L Monocytes # 0.1 L Eosinophils # 0.0 Basophils # 0.0 Nucleated Red Blood Cells # 0.0 Sodium Level 142 Potassium Level 3.8 Chloride Level 108 Carbon Dioxide Level 28 Anion Gap 10 Blood Urea Nitrogen 15 # Creatinine 0.63 Glucose Level 129 Calcium Level 8.9 Magnesium Level 1.9 Total Bilirubin 0.2 Direct Bilirubin 0.00 Indirect Bilirubin 0.2 Aspartate Amino Transf (AST/SGOT) 25 Alanine Aminotransferase (ALT/SGPT) 25 Alkaline Phosphatase 63 Total Protein 6.9 Albumin 3.4 Globulin 3.50 H Albumin/Globulin Ratio 0.97 Triglycerides Level 30 Cholesterol Level 160 LDL Cholesterol, Calculated 86 HDL Cholesterol 68 Cholesterol/HDL Ratio 2.3 Medications Medications Current Medications Amlodipine Besylate (Norvasc) 5 mg DAILY PO Last administered on 06/06/17 09: 17; Admin Dose 5 MG; Start 06/05/17 at 14:30 Clonidine (Catapres) 0.1 mg BID PRN PO ELEVATED BLOOD PRESSURE; Start 06/05/17 at 14:00 Donepezil HCl (Aricept) 10 mg DAILY PO Last administered on 06/06/17 09:18; Admin Dose 10 MG; Start 06/05/17 at 14:30 Lorazepam (Ativan) 0.5 mg HS PRN PO ANXIETY; Start 06/05/17 at 14:00 Losartan Potassium (Cozaar) 100 mg DAILY PO Last administered on 06/06/17 09: 18; Admin Dose 100 MG; Start 06/05/17 at 14:30 Quetiapine Fumarate (Seroquel) 12.5 mg BID PO Last administered on 06/06/17 09 :17; Admin Dose 12.5 MG; Start 06/05/17 at 21:00 Hydralazine HCl 10 mg 10 mg Q8H PRN IV ELEVATED BLOOD PRESSURE; Start 06/05/17 at 14:00 Ceftriaxone Sodium (Rocephin) 50 ml @ 100 mls/hr Q24H IVPB Last administered on 06/06/17 09:19; Admin Dose 100 MLS/HR; Start 06/06/17 at 10:00 Ondansetron HCl (Zofran Inj) 4 mg Q6H PRN IV NAUSEA AND/OR VOMITING; Start at 14:00 Methylprednisolone Sodium Succinate (Solu-Medrol) 60 mg Q8 IV Last administered on 06/06/17 05:33; Admin Dose 60 MG; Start 06/05/17 at 14:30 Nitroglycerin (Nitroglycerin (Sl Tab) 0.4 Mg) 1 tab Q5M PRN SL CHEST PAIN; Start 06/05/17 at 14:00 Acetaminophen (Tylenol Tab) 650 mg Q6H PRN PO PAIN LEVEL 1-3 OR FEVER; Start at 14:00 Acetaminophen/ Hydrocodone Bitart ([place] (5/325)) 1 tab Q6H PRN PO PAIN LEVEL 4 -6 Last administered on 06/06/17 05:38; Admin Dose 1 TAB; Start 06/05/17 at 14: 00 Morphine Sulfate (morphine) 2 mg Q4H PRN IV PAIN LEVEL 7-10 Last administered on 06/05/17 22:43; Admin Dose 2 MG; Start 06/05/17 at 14:00 Docusate Sodium (Colace) 100 mg Q12H PRN PO CONSTIPATION; Start 06/05/17 at 14: 00 Magnesium Hydroxide (Milk Of Mag) 30 ml DAILY PRN PO CONSTIPATION; Start at 14:00 Bisacodyl (Dulcolax Supp) 10 mg DAILY PRN [place] CONSTIPATION; Start 06/05/17 at 14 :00 Pantoprazole (Protonix Tab) 40 mg DAILY@06 PO Last administered on 06/06/17 05 :33; Admin Dose 40 MG; Start 06/06/17 at 06:00 Enoxaparin Sodium (Lovenox) 40 mg DAILY SC Last administered on 06/06/17 09:29 ; Admin Dose 40 MG; Start 06/06/17 at 09:00 Memantine (Namenda) 10 mg DAILY PO Last administered on 06/06/17 09:17; Admin Dose 10 MG; Start 06/06/17 at 09:00 Salmeterol Xinafoate/ Fluticasone (Advair 250/50 Diskus) 1 inh BID INH Last administered on 06/06/17 09:17; Admin Dose 1 INH; Start 06/05/17 at 21:00 Tiotropium [place] (Spiriva) 1 inh DAILY INH Last administered on 06/06/17 09: 17; Admin Dose 1 INH; Start 06/05/17 at 17:00 AKASH PAN Jun 06, 2017 12:31
[2017-06-07] VITALS (12 sets, daily range): BP systolic 114–158; BP diastolic 55–94; PULSE 62–126; RESP 17–20
[2017-06-07] MEDS: HYDROCODONE/APAP (5/325) TAB PO PRN (03:10)
[2017-06-07] MEDS: PANTOPRAZOLE (EC) 40 MG TAB PO SCH (06:14)
[2017-06-07] MEDS: METHYLPREDNISOLONE 125 MG INJ IV SCH ×3 (06:14→21:29)
[2017-06-07] MEDS: ALBUTEROL/IPRATROPIUM (NEB) 3 ML AMP HHN SCH ×3 (08:49→23:35)
[2017-06-07] MEDS: TIOTROPIUM 18 MCG CAPSULE INHA DEV INH SCH (10:15)
[2017-06-07] MEDS: SALMETEROL/FLUTICASONE 250/50 INHA INH SCH ×2 (10:15→21:29)
[2017-06-07] MEDS: DONEPEZIL 10 MG TAB PO SCH (10:16)
[2017-06-07] MEDS: MEMANTINE 10 MG TAB PO SCH (10:16)
[2017-06-07] MEDS: LOSARTAN 50 MG TAB PO SCH (10:17)
[2017-06-07] MEDS: AMLODIPINE 5 MG TAB PO SCH (10:17)
[2017-06-07] MEDS: QUETIAPINE 25 MG TAB PO SCH ×2 (10:18→21:28)
[2017-06-07] MEDS: CEFTRIAXONE 1 GM/50 ML (PMX) 50 ML IVPB SCH (10:19)
[2017-06-07] MEDS: ENOXAPARIN 40 MG/0.4 ML SYG SC SCH (10:33)
--- NOTE | 2017-06-07 12:20 | PN ---
Date/Time of Note Date/Time of Note DATE: 06/07/17 TIME: 12:16 Assessment/Plan VTE Prophylaxis VTE Prophylaxis Intervention: LMWH Lines/Catheters IV Catheter Type (from Nrs): Peripheral IV Urinary Cath still in place: No Assessment/Plan Assessment/Plan 81-year-old female with: 1. Acute respiratory distress, COPD exacerbation, CAT scan consistent with moderate to severe emphysema with likely underlying bronchitis Continue nebulizer treatments, steroids, Advair, Spiriva, pulmonary toilet. Will discharge back to SNF or Assisted living today on medrol dose pack and Z pack Supplemental oxygen with goal O2 sat at or above 92% Will see if needs supp O2 2. Hypertension: Continue current medications, as needed hydralazine IV added. 3. Dementia: Continue home medications, patient currently stable and calm 4. GERD: Continue current medications 5. Schizophrenia per record, continue current medications Prophylaxis: Lovenox for DVT prophylaxis, Protonix for GI prophylaxis Disposition: Continue current treatment, supplemental oxygen, hopefully discharge planning today back to assisted living Patient is DNR Subjective 24 Hr Interval Summary Free Text/Dictation Patient doing OK, she seems to be at baseline D/c plan back to [facility] today Exam/Review of Systems Vital Signs Vitals Vital Signs Date Time Temp Pulse Resp B/P Pulse Ox O2 Delivery O2 Flow Rate FiO2 06/07/17 11:05 98.3 82 20 129/64 100 06/07/17 10:35 Nasal Cannula 2.0 06/07/17 08:49 21 Intake and Output 06/06/17 06/06/17 06/07/17 15:00 23:00 07:00 Intake Total 50 ml 350 ml Balance 50 ml 350 ml Exam Constitutional: alert, frail, oriented (x2), other (elderly) Respiratory: clear to auscultation, normal air movement Cardiovascular: regular rate and rhythm Gastrointestinal: non-tender, soft Musculoskeletal: nl extremities to inspection, other (no edema, clubbing or cyanosis ) Extremities: normal pulses, other (no edema, clubbign or cyanosis ) 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, nl mental status, nl speech, other ( generalized weakness ) Results Result Diagram: 06/06/1730 06/06/17 0630 Medications Medications Current Medications Amlodipine Besylate (Norvasc) 5 mg DAILY PO Last administered on 06/07/17t 10: 17; Admin Dose 5 MG; Start 06/05/17 at 14:30 Clonidine (Catapres) 0.1 mg BID PRN PO ELEVATED BLOOD PRESSURE; Start 06/05/17 at 14:00 Donepezil HCl (Aricept) 10 mg DAILY PO Last administered on 06/07/17 10:16; Admin Dose 10 MG; Start 06/05/17 at 14:30 Lorazepam (Ativan) 0.5 mg HS PRN PO ANXIETY; Start 06/05/17 at 14:00 Losartan Potassium (Cozaar) 100 mg DAILY PO Last administered on 06/07/17 10: 17; Admin Dose 100 MG; Start 06/05/17 at 14:30 Quetiapine Fumarate (Seroquel) 12.5 mg BID PO Last administered on 06/07/17 10 :18; Admin Dose 12.5 MG; Start 06/05/17 at 21:00 Hydralazine HCl 10 mg 10 mg Q8H PRN IV ELEVATED BLOOD PRESSURE; Start 06/05/17 at 14:00 Ceftriaxone Sodium (Rocephin) 50 ml @ 100 mls/hr Q24H IVPB Last administered on 06/07/17 10:19; Admin Dose 100 MLS/HR; Start 06/06/17 at 10:00 Ondansetron HCl (Zofran Inj) 4 mg Q6H PRN IV NAUSEA AND/OR VOMITING; Start at 14:00 Methylprednisolone Sodium Succinate (Solu-Medrol) 60 mg Q8 IV Last administered on 06/07/17 06:14; Admin Dose 60 MG; Start 06/05/17 at 14:30 Nitroglycerin (Nitroglycerin (Sl Tab) 0.4 Mg) 1 tab Q5M PRN SL CHEST PAIN; Start 06/05/17 at 14:00 Acetaminophen (Tylenol Tab) 650 mg Q6H PRN PO PAIN LEVEL 1-3 OR FEVER; Start at 14:00 Acetaminophen/ Hydrocodone Bitart ([place] (5/325)) 1 tab Q6H PRN PO PAIN LEVEL 4 -6 Last administered on 06/07/17 03:10; Admin Dose 1 TAB; Start 06/05/17 at 14: 00 Morphine Sulfate (morphine) 2 mg Q4H PRN IV PAIN LEVEL 7-10 Last administered on 06/05/17 22:43; Admin Dose 2 MG; Start 06/05/17 at 14:00 Docusate Sodium (Colace) 100 mg Q12H PRN PO CONSTIPATION; Start 06/05/17 at 14: 00 Magnesium Hydroxide (Milk Of Mag) 30 ml DAILY PRN PO CONSTIPATION; Start at 14:00 Bisacodyl (Dulcolax Supp) 10 mg DAILY PRN [place] CONSTIPATION; Start 06/05/17 at 14 :00 Pantoprazole (Protonix Tab) 40 mg DAILY@06 PO Last administered on 06/07/17 06 :14; Admin Dose 40 MG; Start 06/06/17 at 06:00 Enoxaparin Sodium (Lovenox) 40 mg DAILY SC Last administered on 06/07/17 10:33 ; Admin Dose 40 MG; Start 06/06/17 at 09:00 Memantine (Namenda) 10 mg DAILY PO Last administered on 06/07/17 10:16; Admin Dose 10 MG; Start 06/06/17 at 09:00 Salmeterol Xinafoate/ Fluticasone (Advair 250/50 Diskus) 1 inh BID INH Last administered on 06/07/17 10:15; Admin Dose 1 INH; Start 06/05/17 at 21:00 Tiotropium [place] (Spiriva) 1 inh DAILY INH Last administered on 06/07/17 10: 15; Admin Dose 1 INH; Start 06/05/17 at 17:00 AKASH PAN Jun 07, 2017 12:20
--- NOTE | 2017-06-07 15:06 | PDOCDIS ---
Discharge Instructions CONDITION Patient Condition: Stable HOME CARE INSTRUCTIONS: Diet Instructions: RegularSpecial Diet: Mechanical soft ACTIVITY: Activity Restrictions: Slowly Increase Activity FOLLOW UP/APPOINTMENTS Follow-up Plan Follow-up with primary care physician within 1 week Follow-up with home health RN AKASH PAN Jun 07, 2017 15:06
[2017-06-07] MEDS ORDERED: IPRA3AMP HHN (15:11)
[2017-06-07] MEDS ORDERED: TIOT18CA INH (15:11)
[2017-06-07] MEDS ORDERED: LACT1CAP57 PO (15:11)
[2017-06-07] MEDS ORDERED: LEVO250T9 PO (15:11)
[2017-06-07] MEDS ORDERED: PANT40TA4 PO (15:11)
[2017-06-07] MEDS ORDERED: MED4DP PO (15:11)
[2017-06-07] MEDS ORDERED: ADV25050 INH (15:12)
[2017-06-07] MEDS ORDERED: LEVOFLOXACIN 500 MG TAB PO ONE (15:30)
[2017-06-08] VITALS (9 sets, daily range): BP systolic 128–179; BP diastolic 74–99; PULSE 93–108; RESP 18–20
[2017-06-08] MEDS: METHYLPREDNISOLONE 125 MG INJ IV SCH (06:00)
[2017-06-08] MEDS: PANTOPRAZOLE (EC) 40 MG TAB PO SCH (06:00)
[2017-06-08] MEDS: ALBUTEROL/IPRATROPIUM (NEB) 3 ML AMP HHN SCH ×2 (08:06→16:00)
[2017-06-08] MEDS: SALMETEROL/FLUTICASONE 250/50 INHA INH SCH (09:50)
[2017-06-08] MEDS: QUETIAPINE 25 MG TAB PO SCH (09:51)
[2017-06-08] MEDS: TIOTROPIUM 18 MCG CAPSULE INHA DEV INH SCH (09:51)
[2017-06-08] MEDS: AMLODIPINE 5 MG TAB PO SCH (09:52)
[2017-06-08] MEDS: DONEPEZIL 10 MG TAB PO SCH (09:52)
[2017-06-08] MEDS: LOSARTAN 50 MG TAB PO SCH (09:53)
[2017-06-08] MEDS: MEMANTINE 10 MG TAB PO SCH (09:53)
[2017-06-08] MEDS: ENOXAPARIN 40 MG/0.4 ML SYG SC SCH (10:04)
[2017-06-08] MEDS ORDERED: LEVOFLOXACIN 250 MG TAB PO SCH (11:00)
--- NOTE | 2017-06-08 12:33 | PN ---
Date/Time of Note Date/Time of Note DATE: 06/08/17 TIME: 12:28 Assessment/Plan VTE Prophylaxis VTE Prophylaxis Intervention: SCD's Lines/Catheters IV Catheter Type (from Nrs): Peripheral IV Urinary Cath still in place: No Assessment/Plan Assessment/Plan 81-year-old female with: 1. Acute respiratory distress, COPD exacerbation, CAT scan consistent with moderate to severe emphysema with likely underlying bronchitis Continue nebulizer treatments, steroids, Advair, Spiriva, pulmonary toilet. Discharge back to Assisted living today on medrol dose pack and Levaquin No need for Supplemental oxygen, patient on RA 2. Hypertension: Continue current medications, as needed hydralazine IV added. 3. Dementia: Continue home medications, patient currently stable and calm 4. GERD: Continue current medications 5. Schizophrenia per record, continue current medications Prophylaxis: Lovenox for DVT prophylaxis, Protonix for GI prophylaxis Disposition: Discharge back to Assisted living today. Patient is DNR Subjective 24 Hr Interval Summary Free Text/Dictation Patient refused to get on the Ambulance yesterday and unable to get a hold of the son, He will be here later this AM and patient scheduled to be discharged at 2 pm today Exam/Review of Systems Vital Signs Vitals Vital Signs Date Time Temp Pulse Resp B/P Pulse Ox O2 Delivery O2 Flow Rate FiO2 06/08/17 11:03 98.9 91 18 128/74 97 06/08/17 08:06 21 06/08/17 05:30 Room Air 06/07/17 20:00 2.0 Intake and Output 06/07/17 06/07/17 06/08/17 15:00 23:00 07:00 Intake Total 620 ml 120 ml Balance 620 ml 120 ml Exam Constitutional: alert, frail, oriented (2) Respiratory: clear to auscultation, normal air movement Cardiovascular: nl pulses, regular rate and rhythm Gastrointestinal: non-tender, soft Musculoskeletal: nl extremities to inspection Extremities: normal pulses, other (no edema, clubbing or cyanosis ) 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, nl mental status, nl speech, nl strength Results Result Diagram: 06/06/1730 06/06/1730 Medications Medications Current Medications Amlodipine Besylate (Norvasc) 5 mg DAILY PO Last administered on 06/08/17t 09: 52; Admin Dose 5 MG; Start 06/05/17 at 14:30 Clonidine (Catapres) 0.1 mg BID PRN PO ELEVATED BLOOD PRESSURE; Start 06/05/17 at 14:00 Donepezil HCl (Aricept) 10 mg DAILY PO Last administered on 06/08/17 09:52; Admin Dose 10 MG; Start 06/05/17 at 14:30 Lorazepam (Ativan) 0.5 mg HS PRN PO ANXIETY; Start 06/05/17 at 14:00 Losartan Potassium (Cozaar) 100 mg DAILY PO Last administered on 06/08/17 09: 53; Admin Dose 100 MG; Start 06/05/17 at 14:30 Quetiapine Fumarate (Seroquel) 12.5 mg BID PO Last administered on 06/08/17 09 :51; Admin Dose 12.5 MG; Start 06/05/17 at 21:00 Hydralazine HCl (Apresoline) 10 mg Q8H PRN IV ELEVATED BLOOD PRESSURE Last administered on 06/08/17 04:47; Admin Dose 10 MG; Start 06/05/17 at 14:00 Ondansetron HCl (Zofran Inj) 4 mg Q6H PRN IV NAUSEA AND/OR VOMITING; Start at 14:00 Nitroglycerin (Nitroglycerin (Sl Tab) 0.4 Mg) 1 tab Q5M PRN SL CHEST PAIN; Start 06/05/17 at 14:00 Acetaminophen (Tylenol Tab) 650 mg Q6H PRN PO PAIN LEVEL 1-3 OR FEVER Last administered on 06/08/17 06:15; Admin Dose 650 MG; Start 06/05/17 at 14:00 Acetaminophen/ Hydrocodone Bitart ([place] (5/325)) 1 tab Q6H PRN PO PAIN LEVEL 4 -6 Last administered on 06/07/17 03:10; Admin Dose 1 TAB; Start 06/05/17 at 14: 00 Morphine Sulfate (morphine) 2 mg Q4H PRN IV PAIN LEVEL 7-10 Last administered on 06/05/17 22:43; Admin Dose 2 MG; Start 06/05/17 at 14:00 Docusate Sodium (Colace) 100 mg Q12H PRN PO CONSTIPATION; Start 06/05/17 at 14: 00 Magnesium Hydroxide (Milk Of Mag) 30 ml DAILY PRN PO CONSTIPATION; Start at 14:00 Bisacodyl (Dulcolax Supp) 10 mg DAILY PRN [place] CONSTIPATION; Start 06/05/17 at 14 :00 Pantoprazole (Protonix Tab) 40 mg DAILY@06 PO Last administered on 06/08/17 06 :00; Admin Dose 40 MG; Start 06/06/17 at 06:00 Enoxaparin Sodium (Lovenox) 40 mg DAILY SC Last administered on 06/08/17 10:04 ; Admin Dose 40 MG; Start 06/06/17 at 09:00 Memantine (Namenda) 10 mg DAILY PO Last administered on 06/08/17 09:53; Admin Dose 10 MG; Start 06/06/17 at 09:00 Salmeterol Xinafoate/ Fluticasone (Advair 250/50 Diskus) 1 inh BID INH Last administered on 06/08/17 09:50; Admin Dose 1 INH; Start 06/05/17 at 21:00 Tiotropium [place] (Spiriva) 1 inh DAILY INH Last administered on 06/08/17 09: 51; Admin Dose 1 INH; Start 06/05/17 at 17:00 Methylprednisolone Sodium Succinate (Solu-Medrol) 60 mg Q12 IV ; Start 06/08/17 at 21:00 Levofloxacin (Levaquin) 250 mg DAILY PO ; Start 06/08/17 at 11:00 AKASH PAN Jun 08, 2017 12:33
[2017-06-08] MEDS ORDERED: METHYLPREDNISOLONE 125 MG INJ IV SCH (21:00)
== END 2017-06-08 15:00 | disposition home or self-care (01) | DRG 191 ==
LOC: E/R 08:00 → TEL 11:36
PROVIDERS: ADMIT Internal Medicine; ATTEND Internal Medicine
PROC: 5A09357 Assistance with Respiratory Ventilation, Less than 24 Consecutive Hours, Continuous Positive Airway Pressure (ICD-10-PCS; principal; 2017-06-05)
DX: J44.1 Chronic obstructive pulmonary disease with (acute) exacerbation (principal); E87.0 Hyperosmolality and hypernatremia; F03.90 Unspecified dementia, unspecified severity, without behavioral disturbance, psychotic disturbance, mood disturbance, and anxiety; N39.0 Urinary tract infection, site not specified; I10 Essential (primary) hypertension; J44.0 Chronic obstructive pulmonary disease with (acute) lower respiratory infection; K21.9 Gastro-esophageal reflux disease without esophagitis; J20.9 Acute bronchitis, unspecified; F20.9 Schizophrenia, unspecified; B96.20 Unspecified Escherichia coli [E. coli] as the cause of diseases classified elsewhere; Z66 Do not resuscitate; Z87.891 Personal history of nicotine dependence
CPT/HCPCS: 36415; 36600; 71010; 71275; 80053; 80061; 81001; 82550; 82553; 82803; 83735; 83880; 84484; 85025; 87081; 87086; 90686; 92610; 93005; 94640; 94644; 94645; 94660; 96361; 96365; 96375; A4310; J0360; J0696; J1650; J2270; J2930; J7030; Q9967

== ENCOUNTER 2017-06-10 08:27 | Emergency (ER) | payer OTHER ==
[~2017-06-10] VITALS: Ht 152.4 cm; Wt 56.8 kg
[~2017-06-10 08:27] MED LIST: ADV25050 INH; ALBU8.5H3 INH; AMLO5TAB4 PO; CLON-379 PO; DEXT15LI31 PO; DONE10TA7 PO; IPRA3AMP HHN; LACT1CAP57 PO; LEVO250T9 PO; LORA0.5T PO; LOSA100T7 PO; MED4DP PO; MEMA1CAP5 PO; PANT40TA4 PO; QUET25TA33 PO; TIOT18CA INH; [UNRECOGNIZED DRUG - CODE] PO
[2017-06-10] MEDS ORDERED: CEFTRIAXONE 1 GM/50 ML (PMX) 50 ML IVPB ONE (08:30)
[2017-06-10] MEDS ORDERED: SOD CHLORIDE 0.9% 1,000 ML IV STA ×2 (08:30)
[2017-06-10 08:45] VITALS: Ht 152.4 cm; Wt 56.8 kg
--- NOTE | 2017-06-10 09:25 | RADRPT ---
PROCEDURE: XR Chest. CLINICAL INDICATION: Sepsis . TECHNIQUE: Single frontal chest x-ray. COMPARISON: 06/05/2017 FINDINGS: The lungs are clear of acute infiltrates, edema, effusions, or masses. Calcific atherosclerosis of t he aorta is present. There is focal eventration at the dome of the left hemidiaphragm unchanged.. T he cardiomediastinal silhouette is unremarkable. The osseous structures are intact. IMPRESSION: No acute cardiopulmonary disease. Chronic or senescent changes of the chest. RPTAT: GG .Tunde Saldana MD, MD Date Time Electronically viewed and signed by .Tunde Saldana MD, MD on 06/10/2017 09:24 .L/
[2017-06-10 09:27] LABS: BASOPHILS % 0.5 % (0.0-2.0); EOSINOPHILS # 0.1 10^3/ul (0.0-0.5); EOSINOPHILS % 2.1 % (0.0-7.0); HEMATOCRIT 44.9 % (37.0-47.0); HEMOGLOBIN 14.2 g/dl (12.0-16.0); LYMPHOCYTES # 1.7 10^3/ul (0.8-2.9); LYMPHOCYTES % 39.8 % (15.0-51.0); MEAN CORPUSCULAR HEMOGLOBIN 30.2 pg (29.0-33.0); MEAN CORPUSCULAR HGB CONC 31.6 g/dl (32.0-37.0); MEAN CORPUSCULAR VOLUME 95.5 fl (82.0-101.0); MEAN PLATELET VOLUME 9.3 fl (7.4-10.4); MONOCYTE # 0.3 10^3/ul (0.3-0.9); MONOCYTES % 7.3 % (0.0-11.0); NEUTROPHIL # 2.2 10^3/ul (1.6-7.5); NEUTROPHILS % 49.4 % (39.0-77.0); PLATELET COUNT 379 10^3/UL (140-415); WHITE BLOOD COUNT 4.4 10^3/ul (4.8-10.8)
[2017-06-10 09:42] LABS: INR 0.95; PARTIAL THROMBOPLASTIN TIME 23.3 Sec (25.0-35.0); PROTIME 12.7 Sec (12.2-14.2)
[2017-06-10 09:48] LABS: ALANINE AMINOTRANSFERASE 46 IU/L (13-69); ALBUMIN 3.6 g/dl (3.3-4.9); ALKALINE PHOSPHATASE 63 IU/L (42-121); ANION GAP 8 (8-16); ASPARTATE AMINO TRANSFERASE 47 IU/L (15-46); BILIRUBIN,INDIRECT 0.3 mg/dl (0-1.1); BILIRUBIN,TOTAL 0.3 mg/dl (0.2-1.3); BLOOD UREA NITROGEN 31 mg/dl (7-20); CALCIUM 9.1 mg/dl (8.4-10.2); CARBON DIOXIDE 34 mmol/L (21-31); CHLORIDE 103 mmol/L (97-110); CREATININE 1.09 mg/dl (0.44-1.00); GLUCOSE 86 mg/dl (70-220); POTASSIUM 3.7 mmol/L (3.5-5.1); SODIUM 141 mmol/L (135-144); TOTAL PROTEIN 7.2 g/dl (6.1-8.1)
[2017-06-10 10:00] LABS: TROPONIN-I < 0.012 ng/ml (0.00-0.12)
--- NOTE | 2017-06-10 10:21 | RADRPT ---
PROCEDURE: CT Brain without contrast. CLINICAL INDICATION: Headaches. Neurologic deficit TECHNIQUE: A CT of the brain was performed on multidetector high-resolution CT scanner utilizing a xial sections from the skull base through the vertex without contrast. One or more of the following dose reduction techniques were used: Automated exposure control, Adjustment of the mA and/or kV acc ording to patient size, and/or use of iterative reconstruction technique. DOSE: CTDI = 43 mGy and the DLP = 630 mGy-cm. COMPARISON: None available FINDINGS: No acute intracranial hemorrhage, significant mass effect or midline shift. Mild hypoattenuation of the cerebral white matter is compatible with chronic microvascular ischemic changes. Vascular calcif ications. Prominence of the cortical sulci and ventricles are related to mild cerebral volume loss. Left ethmoid sinus mucosal thickening. IMPRESSION: No acute intracranial hemorrhage or mass effect. Mild chronic microvascular disease and intracranial atherosclerosis. RPTAT: AA .Pj Brannon MD, MD Date Time Electronically viewed and signed by .Pj Brannon MD, on 06/10/2017 10:20 .T/
[2017-06-10] MEDS ORDERED: GUAI-173 PO (10:34)
[2017-06-10 10:45] VITALS: BP 148/80; PULSE 86; RESP 18; TEMP 97.7
--- NOTE | 2017-06-10 12:25 | ERD ---
ER Documentation Chief Complaint Date/Time DATE: 06/10/17 TIME: 12:23 Chief Complaint CAME IN VIA EMS DUE TO ALOC FROM [facility] HPI Patient is an 81-year-old female with Alzheimer's disease who presents with altered mental status. Please note the history and physical exam is limited secondary to the patient's altered mental status. The patient was brought in by ambulance. She came from a facility. Her sugar was normal. She was "more altered than usual" per paramedics. She is a DNR. She was recently admitted to the hospital and discharged on June 08. Upon review of old medical records the patient one previous visit to the ER with admission on June 05. ROS All systems reviewed and are negative except as per history of present illness. Medications Home Meds Reported Medications Guaifenesin* (Tussin*) 100 Mg/5 Ml Syrup, 200 MG PO Q4 Y for COUGH, ML 06/10/17 Albuterol Sulfate* (Proair HFA*) 8.5 Gm Hfa.aer.ad, 2 PUFF INH Q4H Y for WHEEZING AND SOB, #1 INHALER 06/05/17 Lorazepam* (Lorazepam*) 0.5 Mg Tablet, 0.5 MG PO HS Y for ANXIETY, TAB 06/05/17 Clonidine Hcl* (Clonidine Hcl*) 0.1 Mg Tab, 0.1 MG PO BID Y for ELEVATED BLOOD PRESSURE, TAB 06/05/17 Memantine HCl/Donepezil HCl (Namzaric 21 mg-10 mg Capsule) 1 Each Cap.spr.24, 1 EACH PO DAILY 06/05/17 Donepezil* (Donepezil*) 10 Mg Tablet, 10 MG PO DAILY, #30 TAB 06/05/17 Calcium Phosphate Dibas/Vit D3 (RISACAL-D TABLET) 1 Each Tablet, 1 EACH PO DAILY , TAB 06/05/17 Losartan Potassium* (Losartan Potassium*) 100 Mg Tablet, 100 MG PO DAILY, TAB 06/05/17 Amlodipine Besylate* (Norvasc*) 5 Mg Tablet, 5 MG PO DAILY, TAB 06/05/17 Discontinued Reported Medications Dextromethorphan Hbr (Tussin) 15 Mg/5 Ml Liquid, 30 MG PO Q6H Y for COUGH, ML 06/05/17 Quetiapine Fumarate* (Quetiapine Fumarate*) 25 Mg Tablet, 12.5 MG PO BID, TAB 06/05/17 Discontinued Scripts Salmeterol Xinaf/Fluticasone* (Advair*) 250-50 Diskus Inhaler, 1 INH INH BID, # 1 3 Refills Prov:AKASH JOSEPH 06/07/17 Lactobacillus Rhamnosus* (Culturelle*) 1 Each Cap.sprink, 1 CAP PO BID for 30 Days, CAP Prov:AKASH JOSEPH 06/07/17 Pantoprazole* (Pantoprazole*) 40 Mg Tablet.dr, 40 MG PO DAILY for 30 Days, 3 Refills Prov:AKASH JOSEPH 06/07/17 Levofloxacin* (Levofloxacin*) 250 Mg Tablet, 250 MG PO DAILY for 5 Days, TAB Prov:AKASH JOSEPH 06/07/17 Methylprednisolone* (Medrol* DOSE PACK) 4 Mg/Dose-Pack Tab.ds.pk, 4 MG PO . DIRECTED, #1 PACKET Prov:AKASH JOSEPH 06/07/17 Ipratropium-Albuterol (Ipratropium-Albuterol) 0.5-3 Mg/3 Ml Ampul.neb, 3 ML HHN Q6 Y for SHORTNESS OF BREATH, #90 3 Refills Prov:AKASH JOSEPH 06/07/17 Tiotropium [facility]* (Spiriva*) 18 Mcg Cap.w.dev, 1 INH INH DAILY, #1 3 Refills Prov:AKASH JOSEPH 06/07/17 Albuterol Sulfate* (Proair HFA*) 8.5 Gm Hfa.aer.ad, 2 PUFF INH Q6H Y for WHEEZING AND SOB, #1 INHALER Prov:HANNAH FINNEY 06/05/17 Cephalexin* (Keflex*) 500 Mg Capsule, 500 MG PO QID for 10 Days, CAP Prov:REGHANNAH 06/05/17 Allergies Allergies: Coded Allergies: No Known Allergy (Unverified , 06/10/17) PMhx/Soc History of Surgery: Yes (2013) Anesthesia Reaction: No Hx Neurological Disorder: Yes (Dementia) Hx Respiratory Disorders: No Hx Cardiac Disorders: No Hx Psychiatric Problems: No Hx Miscellaneous Medical Probl: No (kidney problems) Hx Alcohol Use: No Hx Substance Use: No Hx Tobacco Use: No Smoking Status: Never smoker FmHx Unable to obtain Physical Exam Vitals Vital Signs Date Time Temp Pulse Resp B/P Pulse Ox O2 Delivery O2 Flow Rate FiO2 06/10/17 10:45 97.7 86 18 148/80 99 06/10/17 08:45 97.7 96 18 157/90 99 Physical Exam Const: Demented at baseline but no acute distress Head: Atraumatic Eyes: Normal Conjunctiva ENT: Normal External Ears, Nose and Mouth. Neck: Full range of motion..~ No meningismus. Resp: Clear to auscultation bilaterally Cardio: Regular rate and rhythm, no murmurs Abd: Soft, non tender, non distended. Normal bowel sounds Skin: No petechiae or rashes Back: No midline or flank tenderness Ext: No cyanosis, or edema Neur: Awake but demented at baseline Result Diagram: 06/10/1790406/10/1705 Results 24 hrs Laboratory Tests Test 06/10/17 08:58 06/10/17 09:05 Lactic Acid Level 1.0mmol/L White Blood Count 4.410^3/ul Red Blood Count 4.7010^6/ul Hemoglobin 14.2g/dl Hematocrit 44.9% Mean Corpuscular Volume 95.5fl Mean Corpuscular Hemoglobin 30.2pg Mean Corpuscular Hemoglobin Concent 31.6g/dl Red Cell Distribution Width 15.0% Platelet Count 54320^3/UL Mean Platelet Volume 9.3fl Neutrophils % 49.4% Lymphocytes % 39.8% Monocytes % 7.3% Eosinophils % 2.1% Basophils % 0.5% Nucleated Red Blood Cells % 0.0/100WBC Neutrophils # 2.210^3/ul Lymphocytes # 1.710^3/ul Monocytes # 0.310^3/ul Eosinophils # 0.110^3/ul Basophils # 0.010^3/ul Nucleated Red Blood Cells # 0.010^3/ul Prothrombin Time 12.7Sec Prothrombin Time Ratio 1.0 INR International Normalized Ratio 0.95 Activated Partial Thromboplast Time 23.3Sec Sodium Level 141mmol/L Potassium Level 3.7mmol/L Chloride Level 103mmol/L Carbon Dioxide Level 34mmol/L Anion Gap 8 Blood Urea Nitrogen 31mg/dl Creatinine 1.09mg/dl Glucose Level 86mg/dl Calcium Level 9.1mg/dl Total Bilirubin 0.3mg/dl Direct Bilirubin 0.00mg/dl Indirect Bilirubin 0.3mg/dl Aspartate Amino Transf (AST/SGOT) 47IU/L Alanine Aminotransferase (ALT/SGPT) 46IU/L Alkaline Phosphatase 63IU/L Troponin I < 0.012ng/ml Total Protein 7.2g/dl Albumin 3.6g/dl Globulin 3.60g/dl Albumin/Globulin Ratio 1.00 Current Medications Medications (Trade) Dose Ordered Sig/Kristen Route PRN Reason Start Time Stop Time Status Last Admin Dose Admin Sodium Chloride 1,000 ml @ 1,000 mls/hr Q1H STAT IV 06/10/17 08:30 06/10/17 09:29 DC 06/10/17 09:22 Sodium Chloride 1,000 ml @ 1,000 mls/hr Q1H STAT IV 06/10/17 08:30 06/10/17 09:29 DC Ceftriaxone Sodium (Rocephin) 50 ml @ 100 mls/hr ONCE ONCE IVPB 06/10/17 08:30 06/10/17 08:59 DC 06/10/17 09:26 Procedures/MDM EKG read by me: Rate/Rhythm: Regular rate and rhythm at a normal rate Intervals: Normal Impression: No evidence of ischemia or arrhythmia CT brain is negative per radiology for intracranial bleed or mass. Patient is an 81-year-old female presents with altered mental status. She is demented at baseline. Full workup was done including sepsis workup which is basically negative. Her BUN creatinine ratio is greater than 20 showing dehydration and she was given IV fluid resuscitation. At this point I see no signs of sepsis or serious bacterial infection. There is no intra-cranial hemorrhage or mass. I doubt acute coronary syndrome. I believe outpatient management is appropriate but the patient will need close follow-up with a primary doctor within 24-48 hours. The patient can return for any worsening symptoms. I spoke with Dr. Joseph from [facility] who agrees with the plan of care and says that the patient does not require readmission. Departure Diagnosis: Primary Impression: Altered level of consciousness Additional Impression: Dehydration Condition: Fair Patient Instructions: Altered Loc Referrals: Your doctor Additional Instructions: Call your primary care doctor TOMORROW for an appointment during the next 1-2 days.See the doctor sooner or return here if your condition worsens before your appointment time. JAZ LESLIE MD Jun 10, 2017 12:25
== END 2017-06-10 12:46 | disposition home or self-care (01) ==
LOC: E/R 08:27
DX: R40.4 Transient alteration of awareness (principal); E86.0 Dehydration; G30.9 Alzheimer's disease, unspecified; R40.2142 Coma scale, eyes open, spontaneous, at arrival to emergency department; R40.2252 Coma scale, best verbal response, oriented, at arrival to emergency department; R40.2362 Coma scale, best motor response, obeys commands, at arrival to emergency department
CPT/HCPCS: 70450; 71010; 80053; 83605; 84484; 85025; 85610; 85730; 87040; 93005; 96374; 99285; J0696; J7030

== ENCOUNTER 2017-07-29 19:31 | Emergency (ER) | payer OTHER ==
[~2017-07-29] VITALS: Ht 157.5 cm; Wt 48.6 kg
[~2017-07-29 19:31] MED LIST changes: -ADV25050 INH; -DEXT15LI31 PO; +GUAI-173 PO; -IPRA3AMP HHN; -LACT1CAP57 PO; -LEVO250T9 PO; -MED4DP PO; -PANT40TA4 PO; -QUET25TA33 PO; -TIOT18CA INH
[2017-07-29 19:37] VITALS: Ht 157.5 cm; Wt 48.6 kg
[2017-07-29] MEDS ORDERED: SODIUM CHLORIDE 0.9% 1L BAG IV* STA (19:57)
[2017-07-29 20:50] LABS: ALANINE AMINOTRANSFERASE 17 IU/L (13-69); ALBUMIN 3.5 g/dl (3.3-4.9); ALBUMIN/GLOBULIN RATIO 1.09; ALKALINE PHOSPHATASE 50 IU/L (42-121); ANION GAP 12 (8-16); ASPARTATE AMINO TRANSFERASE 26 IU/L (15-46); BILIRUBIN,INDIRECT 0.2 mg/dl (0-1.1); BILIRUBIN,TOTAL 0.2 mg/dl (0.2-1.3); BLOOD UREA NITROGEN 29 mg/dl (7-20); CARBON DIOXIDE 30 mmol/L (21-31); CHLORIDE 107 mmol/L (97-110); CREATININE 0.98 mg/dl (0.44-1.00); GLUCOSE 109 mg/dl (70-220); POTASSIUM 4.1 mmol/L (3.5-5.1); SODIUM 145 mmol/L (135-144); TOTAL PROTEIN 6.7 g/dl (6.1-8.1)
[2017-07-29 21:03] LABS: ADD UMIC NO; UR ASCORBIC ACID 40 mg/dL (NEGATIVE); UR BILIRUBIN (Dip) NEGATIVE (NEGATIVE); UR BLOOD (Dip) NEGATIVE (NEGATIVE); UR CLARITY CLEAR (CLEAR); UR COLOR YELLOW (YELLOW); UR GLUCOSE (Dip) NEGATIVE (NEGATIVE); UR KETONES (Dip) TRACE mg/dL (NEGATIVE); UR LEUKOCYTE ESTERASE (Dip) NEGATIVE Leu/ul (NEGATIVE); UR NITRITE (Dip) NEGATIVE (NEGATIVE); UR SPECIFIC GRAVITY (Dip) 1.024 (1.003-1.030); UR TOTAL PROTEIN (Dip) NEGATIVE (NEGATIVE); UR UROBILINOGEN (Dip) NEGATIVE (NEGATIVE)
--- NOTE | 2017-07-29 21:05 | RADRPT ---
PROCEDURE: XR Chest. CLINICAL INDICATION: Possible sepsis. TECHNIQUE: AP Portable chest. COMPARISON: 07/29/2017 FINDINGS: There is mild to moderate cardiomegaly. Atherosclerotic calcifications are noted in the aorta. The lungs are clear. The osseous structures are unremarkable. IMPRESSION: No acute findings. RPTAT: HIKT .Emeka Palmer MD, MD Date Time Electronically viewed and signed by .Emeka Palmer MD, MD on 07/29/2017 21:05 .T/
[2017-07-29 21:07] LABS: TROPONIN-I < 0.012 ng/ml (0.00-0.12)
--- NOTE | 2017-07-29 21:19 | RADRPT ---
PROCEDURE: CT Brain without contrast. CLINICAL INDICATION: Altered mental status. TECHNIQUE: A CT of the brain was performed on multidetector high-resolution CT scanner utilizing a xial sections from the skull base through the vertex without contrast. The scan was reviewed in sof t tissue brain and high frequency resolution bone algorithm windows. Images were reviewed on a high -resolution PACS workstation. One or more the following does reduction techniques were utilized: Aut omated exposure control, adjustment of the mA/ or kV according to patient's size, or use of iterativ e reconstruction technique. The exam CTDI = 45.01 mGy and the DLP = 720.23 mGy-cm. DICOM images are available. COMPARISON: Brain CT 06/10/2017. FINDINGS: The ventricles and sulci are mildly prominent indicative of volume loss. There is mild cerebellar vo lume loss. There is no intracranial hemorrhage, mass effect or midline shift. No abnormal intra-ax ial or extra-axial fluid collections are seen. The lovett/white matter differentiation is preserved. There are mild scattered foci of hypoattenuation in the white matter, which are nonspecific in etiol ogy but likely reflect chronic small vessel ischemic changes. There are mild intracranial vascular calcifications consistent with atherosclerosis. The visualized paranasal sinuses are essentially anjelica ar. IMPRESSION: 1. No acute intracranial hemorrhage, transcortical infarction or mass effect. 2. Mild intracranial atherosclerosis and chronic small vessel ischemic changes. 3. Mild generalized cerebral and cerebellar volume loss. RPTAT: HFN .Maggie Mares MD, MD Date Time Electronically viewed and signed by .Maggie Mares MD, MD on 07/29/2017 21:19 .N/
--- NOTE | 2017-07-29 21:41 | RADRPT ---
PROCEDURE: CT abdomen and pelvis without contrast. CLINICAL INDICATION: Abdominal pain. Possible sepsis TECHNIQUE: CT scan of the abdomen and pelvis without contrast was performed. Sagittal and coronal reformatted images were obtained from the axial source images. One or more of the following dose re duction techniques were used: Automated exposure control, adjustment of the mA and/or kV according t o patient size, use of iterative reconstruction technique. CTDI = 7.58 mGy; DLP = 333.07 mGy-cm COMPARISON: None. FINDINGS: Visualized lower thorax: The lung bases are clear. There is no evidence for pleural effusion. Liver, gallbladder, pancreas and spleen: The liver is normal and size, contour and attenuation. Th ere is no evidence for a liver mass or ductal dilatation. The gallbladder is unremarkable. No comm on bile duct abnormality is demonstrated. The pancreas is unremarkable. The spleen is normal in si ze. Adrenal glands and genitourinary system: Right adrenal gland lesion is hypodense and likely a myelol ipoma without calcifications of findings 3.2 cm. An approximately 3 mm calculus within the center o f the left kidney is present. There is no hydronephrosis. Simple cysts of the kidneys are present bi laterally. The right kidney shows no calculus or hydronephrosis. The ureters are unremarkable. Mild urinary bladder wall thickening of 6 mm is possibly related to suboptimal distension. There is no e vidence of bladder calculus. Uterine atrophy is noted. There is no evidence of ovarian or adnexal m ass. Clips in the left adnexa suggest previous surgery. Gastrointestinal system: The stomach is normal in caliber with no abnormality of significance. The small bowel is normal in caliber with no ileus, obstruction or wall thickening. The appendix and s urrounding fat are within the limits of normal. A marked amount of fecal debris is present througho ut the colon with concern for fecal impaction in the rectum. There is no evidence for colitis or di verticulitis. Peritoneum, retroperitoneum, lymph nodes and vessels: The abdominal aorta is normal in caliber. The re is moderate to severe aortic and iliac system atherosclerotic calcification. The inferior vena c jaswinder is unremarkable. There is no evidence for adenopathy or mass. There is no ascites. No pneumope ritoneum is present Osseous structures and musculoskeletal findings: There is no fracture, lytic or blastic lesion. Di ffuse demineralization is noted. No muscular abnormality or soft tissue pathology is present. RPTAT:HJJR IMPRESSION: 1. Mild urinary bladder wall thickening possibly related to suboptimal distension but cystitis is di fficult to exclude. Consider urinalysis correlation if not already performed. 2. Constipation pattern without evidence of colitis, bowel obstruction or ileus. 3. Small nonobstructing left interpolar renal calculus and incidental bilateral renal cysts. 4. Probable myelolipoma or adenoma of the right adrenal gland. 5. Atherosclerotic calcification of the abdominal aorta and iliac systems. 6. Clips in the left adnexa consistent with previous surgery possibly oophorectomy. Correlation wit h surgical history is suggested. Physician Nereida Date Time Electronically viewed and signed by Physician Nereida on 07/29/2017 21:41 /
[2017-07-29 22:17] LABS: BASOPHILS % 0.5 % (0.0-2.0); EOSINOPHILS # 0.1 10^3/ul (0.0-0.5); EOSINOPHILS % 3.2 % (0.0-7.0); HEMATOCRIT 41.9 % (37.0-47.0); HEMOGLOBIN 12.7 g/dl (12.0-16.0); LYMPHOCYTES # 1.3 10^3/ul (0.8-2.9); LYMPHOCYTES % 32.3 % (15.0-51.0); MEAN CORPUSCULAR HEMOGLOBIN 31.3 pg (29.0-33.0); MEAN CORPUSCULAR HGB CONC 30.3 g/dl (32.0-37.0); MEAN CORPUSCULAR VOLUME 103.2 fl (82.0-101.0); MEAN PLATELET VOLUME 11.2 fl (7.4-10.4); MONOCYTE # 0.3 10^3/ul (0.3-0.9); MONOCYTES % 7.4 % (0.0-11.0); NEUTROPHIL # 2.3 10^3/ul (1.6-7.5); NEUTROPHILS % 56.4 % (39.0-77.0); PLATELET COUNT 151 10^3/UL (140-415); RED BLOOD COUNT 4.06 10^6/ul (4.20-5.40); RED CELL DISTRIBUTION WIDTH 13.9 % (11.5-14.5)
[2017-07-29 23:15] LABS: INR 0.91; PROTIME 12.3 Sec (12.2-14.2)
[2017-07-29 23:16] LABS: PARTIAL THROMBOPLASTIN TIME 20.9 Sec (25.0-35.0)
[2017-07-30] MEDS ORDERED: POLY17PO6 PO (01:21)
--- NOTE | 2017-07-30 01:21 | ERD ---
ER Documentation Chief Complaint Chief Complaint ALOC MORE THAN NORMAL WITH VOMITING X 1 AND COUGHING/DROOLING HPI 81-year-old female sent in for an episode of vomiting and drooling with stated slight alteration of mental status with her normal dementia. No abnormal vital signs are reported. Patient states that she does feel like she is having some difficulty breathing and feels like she has a sore throat. Denies any chest pain shortness of breath, fever chills or abdominal pain. ROS All systems reviewed and are negative except as per history of present illness. Medications Home Meds Reported Medications Guaifenesin* (Tussin*) 100 Mg/5 Ml Syrup, 200 MG PO Q4 Y for COUGH, ML 06/10/17 Albuterol Sulfate* (Proair HFA*) 8.5 Gm Hfa.aer.ad, 2 PUFF INH Q4H Y for WHEEZING AND SOB, #1 INHALER 06/05/17 Lorazepam* (Lorazepam*) 0.5 Mg Tablet, 0.5 MG PO HS Y for ANXIETY, TAB 06/05/17 Clonidine Hcl* (Clonidine Hcl*) 0.1 Mg Tab, 0.1 MG PO BID Y for ELEVATED BLOOD PRESSURE, TAB 06/05/17 Memantine HCl/Donepezil HCl (Namzaric 21 mg-10 mg Capsule) 1 Each Cap.spr.24, 1 EACH PO DAILY 06/05/17 Donepezil* (Donepezil*) 10 Mg Tablet, 10 MG PO DAILY, #30 TAB 06/05/17 Calcium Phosphate Dibas/Vit D3 (RISACAL-D TABLET) 1 Each Tablet, 1 EACH PO DAILY , TAB 06/05/17 Losartan Potassium* (Losartan Potassium*) 100 Mg Tablet, 100 MG PO DAILY, TAB 06/05/17 Amlodipine Besylate* (Norvasc*) 5 Mg Tablet, 5 MG PO DAILY, TAB 06/05/17 Allergies Allergies: Coded Allergies: No Known Allergy (Unverified , 06/10/17) PMhx/Soc Medical and Surgical Hx: pt denies Surgical Hx History of Surgery: No (UNKNOWN) Anesthesia Reaction: No (UNKNOWN) Hx Neurological Disorder: No Hx Respiratory Disorders: No Hx Cardiac Disorders: Yes (HTN) Hx Psychiatric Problems: Yes (SCHIZOAFFECTIVE D/O, DEMENTIA) Hx Miscellaneous Medical Probl: Yes (GERD) Hx Alcohol Use: No (UNKNOWN) Hx Substance Use: No (UNKNOWN) Hx Tobacco Use: No (UNKNOWN) Smoking Status: Unknown if ever smoked Physical Exam Vitals Vital Signs Date Time Temp Pulse Resp B/P Pulse Ox O2 Delivery O2 Flow Rate FiO2 07/29/17 20:18 Nasal Cannula 2 07/29/17 20:08 97.8 74 18 137/80 96 Room Air 07/29/17 19:37 97.1 85 18 120/71 92 Physical Exam Const: [] Moderate distress, appears uncomfortable Head: Atraumatic Eyes: Normal Conjunctiva ENT: Normal External Ears, Nose and Mouth. Oropharynx within normal limits. Mucous membranes moist Neck: Full range of motion..~ No JVD. Trachea midline and mobile.. Resp: Mild gurgling breath sounds otherwise good air movement. Cardio: Regular rate and rhythm, no murmurs Abd: Soft, non tender, non distended. Normal bowel sounds Skin: No petechiae or rashes Back: No midline or flank tenderness Ext: No cyanosis, or edema Neur: Awake and alert oriented 2, no focal deficits, able to move all extremities without pain. Psych: Normal Mood and Affect Result Diagram: 07/29/17219907/29/172014 Results 24 hrs Laboratory Tests Test 07/29/17 20:05 07/29/17 20:15 07/29/17 20:45 07/29/17 22:00 Lactic Acid Level 1.6mmol/L Sodium Level 145mmol/L Potassium Level 4.1mmol/L Chloride Level 107mmol/L Carbon Dioxide Level 30mmol/L Anion Gap 12 Blood Urea Nitrogen 29mg/dl Creatinine 0.98mg/dl Glucose Level 109mg/dl Calcium Level 9.0mg/dl Total Bilirubin 0.2mg/dl Direct Bilirubin 0.00mg/dl Indirect Bilirubin 0.2mg/dl Aspartate Amino Transf (AST/SGOT) 26IU/L Alanine Aminotransferase (ALT/SGPT) 17IU/L Alkaline Phosphatase 50IU/L Troponin I < 0.012ng/ml Total Protein 6.7g/dl Albumin 3.5g/dl Globulin 3.20g/dl Albumin/Globulin Ratio 1.09 Urine Color YELLOW Urine Clarity CLEAR Urine pH 5.0 Urine Specific [place] 1.024 Urine Ketones TRACEmg/dL Urine Nitrite NEGATIVEmg/dL Urine Bilirubin NEGATIVEmg/dL Urine Urobilinogen NEGATIVEmg/dL Urine Leukocyte Esterase NEGATIVELeu/ul Urine Hemoglobin NEGATIVEmg/dL Urine Glucose NEGATIVEmg/dL Urine Total Protein NEGATIVEmg/dl White Blood Count 4.010^3/ul Red Blood Count 4.0610^6/ul Hemoglobin 12.7g/dl Hematocrit 41.9% Mean Corpuscular Volume 103.2fl Mean Corpuscular Hemoglobin 31.3pg Mean Corpuscular Hemoglobin Concent 30.3g/dl Red Cell Distribution Width 13.9% Platelet Count 06656^3/UL Mean Platelet Volume 11.2fl Neutrophils % 56.4% Lymphocytes % 32.3% Monocytes % 7.4% Eosinophils % 3.2% Basophils % 0.5% Nucleated Red Blood Cells % 0.0/100WBC Neutrophils # 2.310^3/ul Lymphocytes # 1.310^3/ul Monocytes # 0.310^3/ul Eosinophils # 0.110^3/ul Basophils # 0.010^3/ul Nucleated Red Blood Cells # 0.010^3/ul Test 07/29/17 22:45 Prothrombin Time 12.3Sec Prothrombin Time Ratio 1.0 INR International Normalized Ratio 0.91 Activated Partial Thromboplast Time 20.9Sec Lactic Acid Level 0.9mmol/L Current Medications Medications (Trade) Dose Ordered Sig/Kristen Route PRN Reason Start Time Stop Time Status Last Admin Dose Admin Sodium Chloride (NS) 1,510 ml BOLUS OVER 2 HOURS STAT IV* 07/29/17 19:57 07/29/17 19:58 DC 07/29/17 20:23 Procedures/MDM Elderly female with swallowed foreign body that may have been present in her trachea. Cup was performed for altered mental status which did not reveal any acute abnormalities or signs of infection such as UTI. I looked in the patient' s throat did not see anything however she subsequently began coughing and coughed up a chunk of food and intact bolus there was fibrous and the appearance of given orange or other large citrus fruit. After this the patient' s breath sounds were normal and she felt much better. She was able to answer questions well in the emergency room as her baseline is dementia as evidenced by her multiple medications believe the appearance of alteration drooling may have been secondary to the foreign body lodged in her airway. She has no signs of pneumonia and even on CT the lung bases are clear of any signs of aspiration. I have low suspicion for cerebrovascular accident. Patient is feeling better and seems to be otherwise healthy red discharge her with instructions see her doctor the next 2 days. Chest x-ray interpretation: I see no acute process, I see no vitamin Story, no infiltrate, no abnormal masses, no fractures, no pneumothorax. CT abdomen pelvis interpretation: See no acute process, lung bases are unremarkable and clear, CT abdomen pelvis interpretation: Retained stool throughout colon exam with constipation, I see no other acute process. I see no bowel obstruction, no free air perforation, no abnormal fat stranding, no fractures CT brain interpretation: I see no acute process. I see no hemorrhage, no mass- effect, no midline shift, no skull fractures. EKG interpretation: Normal sinus rhythm rate of 87, normal axis, no ST or T- wave changes concerning for acute ischemia, normal intervals. Normal EKG Departure Diagnosis: Primary Impression: Tracheal foreign body Additional Impressions: Altered level of consciousness Constipation Condition: Stable Patient Instructions: Swallowed Foreign Body (Adult), Altered Level Of Consciousness (Child) Additional Instructions: Call your primary care doctor TOMORROW for an appointment during the next 1-2 days.See the doctor sooner or return here if your condition worsens before your appointment time. CURRY SOTRM DO Jul 30, 2017 01:21
[2017-07-30 02:02] VITALS: BP 135/81; PULSE 73; RESP 23; TEMP 97.8
== END 2017-07-30 02:08 | disposition home or self-care (01) ==
LOC: E/R 19:31
DX: T17.428A Food in trachea causing other injury, initial encounter (principal); K59.00 Constipation, unspecified; R40.2142 Coma scale, eyes open, spontaneous, at arrival to emergency department; R40.2252 Coma scale, best verbal response, oriented, at arrival to emergency department; R40.2362 Coma scale, best motor response, obeys commands, at arrival to emergency department; R07.9 Chest pain, unspecified; X58.XXXA Exposure to other specified factors, initial encounter; Y92.9 Unspecified place or not applicable
CPT/HCPCS: 36415; 70450; 71010; 74176; 80053; 81003; 83605; 84484; 85025; 85610; 85730; 87040; 87086; 93005; 99285; A4310; J7030

== ENCOUNTER 2019-05-24 16:03 | Emergency (ER) | payer SELFPAY ==
[~2019-05-24] VITALS: Ht 157.5 cm; Wt 44.5 kg
[~2019-05-24 16:03] MED LIST changes: -ALBU8.5H3 INH; +ALBU8.5H8 INH; +LOSA100T15 PO; -LOSA100T7 PO; +POLY17PO6 PO
[2019-05-24 16:21] VITALS: BP 145/82; PULSE 94; RESP 18; Ht 157.5 cm; Wt 44.5 kg
== END 2019-05-24 18:55 | disposition left against medical advice (07) ==
LOC: E/R 16:03
DX: Z53.21 Procedure and treatment not carried out due to patient leaving prior to being seen by health care provider (principal)